=== PATIENT | male | born 1960 | race Caucasian/White ===

== ENCOUNTER → 2017-02-20 | Outpatient (CLI) | payer MEDICAID | END | disposition home or self-care (01) | LOC: CARD 12:08 | PROVIDERS: ATTEND Internal Medicine Pulmonary Disease | DX: I48.91 Unspecified atrial fibrillation (principal); Q89.3 Situs inversus; R06.00 Dyspnea, unspecified; R09.02 Hypoxemia | CPT/HCPCS: 94060; 94620; 94729 ==

== ENCOUNTER → 2017-09-28 | Outpatient (CLI) | payer MEDICAID | END | disposition home or self-care (01) | LOC: CFH 08:05 | PROVIDERS: ATTEND Registered Nurse | DX: J98.11 Atelectasis (principal); J98.4 Other disorders of lung; Q89.3 Situs inversus | CPT/HCPCS: 71250 ==

== ENCOUNTER → 2018-03-19 | Outpatient (CLI) | payer MEDICAID | END | disposition home or self-care (01) | LOC: CFH 08:46 | PROVIDERS: ATTEND Internal Medicine Critical Care Medicine | DX: J94.8 Other specified pleural conditions (principal) | CPT/HCPCS: 71250 ==

== ENCOUNTER → 2020-02-19 | Outpatient (CLI) | payer MEDICARE | END | disposition home or self-care (01) | LOC: CFH 10:31 | PROVIDERS: ATTEND Registered Nurse | DX: J92.9 Pleural plaque without asbestos (principal); J98.4 Other disorders of lung; Q89.7 Multiple congenital malformations, not elsewhere classified; Q24.0 Dextrocardia; Q25.49 Other congenital malformations of aorta; Z87.891 Personal history of nicotine dependence | CPT/HCPCS: 71250 ==